=== PATIENT | male | born 1970 | race American Indian/Alaskan Native ===

== ENCOUNTER 2017-03-20 04:47 | Emergency (ER) | payer SELFPAY ==
[2017-03-20 05:29] VITALS: BP 150/96
[2017-03-20 06:14] LABS: Basophils % (Auto) 0.3 % (0.0-1.8); Eosinophils % (Auto) 1.1 % (0.0-4.3); Hematocrit 42.8 % (35.5-45.6); Mean Corpuscular HGB Conc 33 % (32-34); Mean Corpuscular Hemoglobin 30 pg (28-32); Mean Corpuscular Volume 91 fl (84-94); Platelet Count 245 K/mm3 (140-440); Red Blood Count 4.69 M/mm3 (3.65-5.03); Red Cell Distribution Width 13.2 % (13.2-15.2); White Blood Count 12.5 K/mm3 (4.5-11.0)
[2017-03-20 06:29] LABS: Alanine Aminotransferase 10 units/L (7-56); Albumin 3.8 g/dL (3.9-5); Albumin/Globulin Ratio 1.1 %; Alkaline Phosphatase 95 units/L (35-129); Anion Gap 17 mmol/L; Blood Urea Nitrogen 14 mg/dL (9-20); Calcium 8.8 mg/dL (8.4-10.2); Carbon Dioxide 24 mmol/L (22-30); Chloride 93.8 mmol/L (98-107); Glucose 343 mg/dL (75-100); Lipase 17 units/L (13-60); Potassium 4.2 mmol/L (3.6-5.0); Sodium 131 mmol/L (137-145); Total Protein 7.4 g/dL (6.3-8.2)
[2017-03-20 07:37] LABS: Bilirubin,Urine NEG (Negative); Blood,Urine NEG (Negative); Ketones,Urine NEG (Negative); Leukocyte Esterase,Urine NEG (Negative); Nitrite,Urine NEG (Negative); Protein,Urine <15 mg/dL mg/dL (Negative); Urobilinogen,Urine < 2.0 mg/dL (<2.0)
[2017-03-20 07:40] LABS: RBC,Urine < 1.0 /HPF (0.0-6.0)
[2017-03-20 07:41] LABS: Mucus,Urine Few /HPF
--- NOTE | 2017-03-21 19:32 | ED Elopement Review ---
ED Pt Elopement review - Results review Lab results: Laboratory Tests 03/20/17 03/20/17 03/20/17 05:50 05:50 07:11 WBC 12.5 H RBC 4.69 Hgb 14.0 Hct 42.8 MCV 91 MCH 30 MCHC 33 RDW 13.2 Plt Count 245 Lymph % (Auto) 15.9 [place] % (Auto) 8.0 H Eos % (Auto) 1.1 Baso % (Auto) 0.3 Lymph # 2.0 [place] # 1.0 H Eos # 0.1 Baso # 0.0 Seg Neutrophils % 74.7 H Seg Neutrophils # 9.4 H Sodium 131 L Potassium 4.2 Chloride 93.8 L Carbon Dioxide 24 Anion Gap 17 BUN 14 Creatinine 0.7 L Estimated GFR > 60 BUN/Creatinine Ratio 20.00 Glucose 343 H Calcium 8.8 Total Bilirubin 0.20 AST 10 ALT 10 Alkaline Phosphatase 95 Total Protein 7.4 Albumin 3.8 L Albumin/Globulin Ratio 1.1 Lipase 17 Urine Color Yellow Urine Turbidity Clear Urine pH 5.0 Ur Specific [place] 1.029 Urine Protein <15 mg/dl Urine Glucose (UA) >=500 Urine Ketones Neg Urine Blood Neg Urine Nitrite Neg Urine Bilirubin Neg Urine Urobilinogen < 2.0 Ur Leukocyte Esterase Neg Urine WBC (Auto) 2.0 Urine RBC (Auto) < 1.0 U Epithel Cells (Auto) 1.0 Urine Mucus Few - Call Back decision Pt Call Back Decision: No action required
== END 2017-03-20 08:30 | disposition left against medical advice (07) ==
LOC: ED 04:47
DX: R10.9 Unspecified abdominal pain (principal); Z53.21 Procedure and treatment not carried out due to patient leaving prior to being seen by health care provider
CPT/HCPCS: 36415; 80053; 81001; 83690; 85025

== ENCOUNTER 2017-08-20 13:24 | Emergency (ER) | payer OTHER ==
[2017-08-20] MEDS ORDERED: NACL 0.9% 1000 ML 1,000 ML IV ONE (13:29)
--- NOTE | 2017-08-20 13:31 | Emergency Department Report ---
ED General Adult HPI - General Chief complaint: Altered Mental Status Stated complaint: AMS Time Seen by Provider: 08/20/17 13:28 Source: EMS (verbal report received from EMS.ems notes not available at time of chart dictation), RN notes reviewed Limitations: Altered Mental Status, Physical Limitation - History of Present Illness Initial comments: This is a 47-year-old male, the patient is previously unknown to this provider. EMS reports a past medical history of PTSD. They report that the patient likely had recent abdominal surgery at the local [place] hospital; they believe that the patient had a colectomy/colostomy bag removal. EMS indicates that they were contacted for agitated behavior. They indicate that the patient was quite combative, and required many people to restrain and hold him down in the field. They verbally reported that they gave Benadryl, Versed, and Haldol prior to arrival. Upon arrival to the ER, the patient sedated, is arousable, protecting his airway, and in no acute distress. Family is unavailable at this time for collateral information. Unable to ascertain information about exacerbating or relieving factors, radiation, etc. -: unknown Radiation: other (as per history of present illness) Consistency: other (as per history of present illness) Improves with: other (as per history of present illness) Worsens with: other (as per history of present illness) Associated Symptoms: other (as per history of present illness) - Related Data Home Medications Medication Instructions Recorded Confirmed Last Taken Sertraline 200 mg PO DAILY 03/20/17 03/20/17 Unknown amLODIPine 10 mg PO DAILY 03/20/17 03/20/17 Unknown glipiZIDE 5 mg PO TID 03/20/17 03/20/17 Unknown metFORMIN 1,000 mg PO TID 03/20/17 03/20/17 Unknown Allergies Allergy/AdvReac Type Severity Reaction Status Date / Time No Known Allergies Allergy Unverified 03/20/17 05:29 ED Review of Systems ROS: Stated complaint: AMS Other details as noted in HPI Comment: Unobtainable due to pts medical conditions ED Past Medical Hx - Past Medical History Hx Hypertension: Yes Hx Diabetes: Yes Hx Arthritis: Yes Additional medical history: PTSD, - Surgical History Additional Surgical History: Right Ankle. Right hip. - Social History Smoking Status: Current Every Day Smoker Substance Use Type: None - Medications Home Medications: Home Medications Medication Instructions Recorded Confirmed Last Taken Type Sertraline 200 mg PO DAILY 03/20/17 03/20/17 Unknown History amLODIPine 10 mg PO DAILY 03/20/17 03/20/17 Unknown History glipiZIDE 5 mg PO TID 03/20/17 03/20/17 Unknown History metFORMIN 1,000 mg PO TID 03/20/17 03/20/17 Unknown History ED Physical Exam - General Limitations: Altered Mental Status, Physical Limitation General appearance: lethargic - Head Head exam: Present: atraumatic, normocephalic - Eye Eye exam: Present: normal appearance, PERRL - ENT ENT exam: Present: normal exam, normal orophraynx, mucous membranes moist, TM's normal bilaterally, normal external ear exam, other (there is no hemotympanum) - Neck Neck exam: Present: normal inspection. Absent: tenderness, meningismus - Respiratory Respiratory exam: Present: normal lung sounds bilaterally. Absent: respiratory distress, wheezes, rales, rhonchi, stridor, chest wall tenderness, accessory muscle use, decreased breath sounds, prolonged expiratory - Cardiovascular Cardiovascular Exam: Present: normal rhythm, tachycardia, normal heart sounds. Absent: systolic murmur, diastolic murmur, rubs, gallop - GI/Abdominal GI/Abdominal exam: Present: soft, normal bowel sounds, other (multiple ragini noted on the abdominal wall. No redness, pus or streaking. There is no tenderness). Absent: distended, tenderness, guarding, rebound, rigid, pulsatile mass - Rectal Rectal exam: Present: normal inspection - exam: Present: normal inspection External exam: Present: normal external exam - Extremities Exam Extremities exam: Present: normal inspection, normal capillary refill, other ( there is no clonus. The compartments are soft. There is no long bony step- offs. 2+ pulses noted in the bilateral upper and lower extremities). Absent: calf tenderness - Back Exam Back exam: Present: normal inspection. Absent: tenderness, CVA tenderness (R), paraspinal tenderness - Neurological Exam Neurological exam: Present: altered - Psychiatric Psychiatric exam: Present: other (patient is currently nonverbal) - Skin Skin exam: Present: warm, dry, intact, normal color. Absent: rash ED Course Vital Signs 08/20/17 08/20/17 13:36 14:08 Temperature 99.3 F Pulse Rate 103 H Respiratory 18 18 Rate Blood Pressure 142/86 O2 Sat by Pulse 99 100 Oximetry - Reevaluation(s) Reevaluation #1: 08/20/17 13:49 Differential diagnosis: Intracranial injury, cervical spine injury, mood disorder, electrolyte derangement, intra-abdominal injury Assessment and plan: 47-year-old male who is currently sedated after episode of agitated behavior. He does not have hyperreflexia, there is no clonus, and he does not have a fever. We will check CT scan of the brain and cervical spine, laboratory studies, urinalysis, chest x-ray, noncontrast CT scan of the abdomen and pelvis, and wait for the patient to wake up in order to obtain better history. Reevaluation #2: 08/20/17 15:12 Additional history obtained from patient's fiance, Miss Cheli Menon; She reports that the patient was quite agitated earlier on today, and is currently dependent on "rocks", crack and cocaine. Apparently, the patient endorses suicidality, and was quite agitated and belligerent, and this is why 911 was contacted. She reports that the patient had a distant history of diverticulitis, which required colostomy, which was reversed 2 weeks ago at [facility], by Dr. Zavala. Patient is placed on a 1013 at this time. A crisis consult has been ordered/ requested. Reevaluation #3: 08/20/17 15:[address] scan of the brain and cervical spine negative. CT scan of the abdomen/pelvis with nonspecific findings. Patient is still sleepy, plan to repeat with IV and oral contrast. If abnormal findings persist on repeat CT scan with better delineation, will discuss with the patient's surgeon at [facility], Dr. Zavala. [facility] Haile Zavala M.D. [facility] Appendectomy, Breast Surgery, Cancer Surgery, Colon Surgery, Gallbladder Surgery , Hernia Surgery, Laparoscopic Surgery, Melanoma Surgery, Parathyroid Surgery, Rectal Surgery, Reflux Surgery, Spleen Surgery, Stomach Surgery, Thyroid Surgery Board Certification June 2013 [facility] 05/2008-06/[address] [facility] Office(s) [facility] [address] [address] 08/20/17 15:28 Reevaluation #4: 08/20/17 15:43 Care transferred to the oncoming ER physician, Dr. Armando, to follow-up CT scan of the abdomen and pelvis with IV and oral contrast. Patient still somnolent and sedated, therefore he cannot tolerate oral contrast, we will have to wait for him to wake up. ED Medical Decision Making - Lab Data Result diagrams: 08/20/17 13:57 08/20/17 13:57 Vital Signs 08/20/17 13:36 Temperature 99.3 F Pulse Rate 103 H Respiratory 18 Rate Blood Pressure 142/86 O2 Sat by Pulse 99 Oximetry - EKG Data 08/20/17 13:51 Sinus tachycardia, 104 bpm, left axis deviation, atrial enlargement, not morphologically consistent with STEMI, QTc prolonged period there is no prior for comparison at this time. - Radiology Data Radiology results: pending Critical care attestation.: If time is entered above; I have spent that time in minutes in the direct care of this critically ill patient, excluding procedure time. ED Disposition Clinical Impression: Mood disorder Disposition: DC/TX-65 PSY HOSP/PSY UNIT Is pt being admited?: No Does the pt Need Aspirin: No Condition: Good Referrals: PRIMARY CARE, [Primary Care Provider] - 3-5 Days
[2017-08-20 14:08] LABS: Urine Drugs of Abuse Note Disclamer
[2017-08-20 14:15] LABS: Basophils % (Auto) 0.7 % (0.0-1.8); Eosinophils % (Auto) 3.9 % (0.0-4.3); Hematocrit 39.4 % (35.5-45.6); Mean Corpuscular HGB Conc 33 % (32-34); Mean Corpuscular Hemoglobin 29 pg (28-32); Mean Corpuscular Volume 89 fl (84-94); Platelet Count 351 K/mm3 (140-440); Red Blood Count 4.43 M/mm3 (3.65-5.03); White Blood Count 6.8 K/mm3 (4.5-11.0)
[2017-08-20 14:28] LABS: Partial Thromboplastin Time 22.9 Sec. (24.2-36.6)
[2017-08-20 14:34] LABS: Alanine Aminotransferase 6 units/L (7-56); Albumin 3.9 g/dL (3.9-5); Albumin/Globulin Ratio 1.1 %; Alkaline Phosphatase 73 units/L (35-129); Anion Gap 19 mmol/L; BUN/Creatinine Ratio 7; Blood Urea Nitrogen 6 mg/dL (9-20); Calcium 8.9 mg/dL (8.4-10.2); Carbon Dioxide 24 mmol/L (22-30); Chloride 101.8 mmol/L (98-107); Creatine Kinase 180 units/L (55-170); Glucose 166 mg/dL (75-100); Potassium 3.8 mmol/L (3.6-5.0); Sodium 141 mmol/L (137-145); Total Protein 7.3 g/dL (6.3-8.2)
--- NOTE | 2017-08-20 14:35 | XRay Report ---
AP CHEST: HISTORY: Altered mental status AP view of the chest demonstrates a normal mediastinal and cardiac contour with clear lungs and normal bony and soft tissue structures. IMPRESSION: Unremarkable AP chest.
[2017-08-20 14:36] LABS: Alanine Aminotransferase 7 units/L (7-56); Albumin 3.8 g/dL (3.9-5); Albumin/Globulin Ratio 1.1 %; Alkaline Phosphatase 73 units/L (35-129); Anion Gap 21 mmol/L; BUN/Creatinine Ratio 8; Blood Urea Nitrogen 6 mg/dL (9-20); Calcium 9.1 mg/dL (8.4-10.2); Carbon Dioxide 21 mmol/L (22-30); Chloride 102.3 mmol/L (98-107); Glucose 165 mg/dL (75-100); Potassium 3.8 mmol/L (3.6-5.0); Sodium 140 mmol/L (137-145); Total Protein 7.3 g/dL (6.3-8.2)
[2017-08-20 14:51] LABS: Bacteria,Urine 1+ /HPF (Negative); Bilirubin,Urine NEG (Negative); Blood,Urine NEG (Negative); Ketones,Urine NEG (Negative); Leukocyte Esterase,Urine TR (Negative); Mucus,Urine FEW /HPF; Nitrite,Urine NEG (Negative); Protein,Urine <15 mg/dL mg/dL (Negative); Urobilinogen,Urine < 2.0 mg/dL (<2.0)
--- NOTE | 2017-08-20 14:56 | Cat Scan Report ---
CRANIAL CT SCAN: History: Altered mental status. Serial contiguous axial images were obtained through the cranium. Intravenous contrast material was not administered. The ventricles are normal in size and appearance. There is no mass effect or midline shift. No areas of abnormally increased or decreased attenuation are seen. No mass lesion is seen. The mastoid air cells and visualized portions of the sinuses are normal. IMPRESSION: Cranial CT scan within normal limits.
--- NOTE | 2017-08-20 15:01 | Cat Scan Report ---
CT of cervical spine without contrast. History: Neck pain after trauma. Findings: There is no evidence of fracture or subluxation. Multilevel spondylosis is present with extensive anterior osteophytes from C4-C7. The posterior elements are normal. The odontoid is intact. Impression: No acute findings.
[2017-08-20] MEDS ORDERED: ATIVAN IM PRN (15:10)
[2017-08-20] MEDS ORDERED: MOTRIN PO PRN (15:11)
[2017-08-20] MEDS ORDERED: HALDOL IM PRN (15:11)
[2017-08-20] MEDS ORDERED: TYLENOL PO PRN (15:11)
[2017-08-20] MEDS ORDERED: ZOFRAN ODT PO PRN (15:11)
--- NOTE | 2017-08-20 15:16 | Cat Scan Report ---
CT of the abdomen and pelvis without contrast. History: Abdominal trauma. Findings: The technical quality of the examination especially regarding the upper abdominal viscera is suboptimal due to metallic streak artifact from an external metallic device in the patient's anterior skin surface. Noting these limitations, no definite abnormalities of the liver or spleen are seen. No subcapsular fluid collection is identified. The pancreas is unremarkable. There is a large left intrarenal stone centrally measuring 1.6 cm in maximum dimension. There is no evidence of hydronephrosis. There is a hypodense mass arising from the lateral aspect of the left kidney measuring 3.2 cm in diameter. This may represent a simple cyst but is difficult to assess accurately without intravenous contrast and due to the streak artifacts described above. There is no evidence of retroperitoneal hemorrhage. Surgical clips are seen in the patient's midline. No pelvic masses or abnormal fluid collections are seen. Thickening of Gerota's fascia is seen on the left. Coalescent density in the left paracolic gutter may represent fluid filled bowel. A Small fluid collection in this area cannot entirely be excluded. No free air is identified. No pelvic masses are seen. Impression: 1. Large left renal stone without hydronephrosis. 2. Hypodense left renal mass probably representing a cyst. Please see above described technical limitations. 3. Mild thickening of left Gerota's fascia with coalescent density in the left paracolic gutter. This are present fluid-filled bowel or a small fluid collection.
[2017-08-20] MEDS ORDERED: NACL ONE (18:04)
--- NOTE | 2017-08-20 20:05 | Cat Scan Report ---
FINAL REPORT PROCEDURE: CT ABDOMEN PELVIS W CON TECHNIQUE: Computerized axial tomography of the abdomen and pelvis was performed after the IV injection of iodinated nonionic contrast. HISTORY: iv and oral COMPARISON: 08/20/2017 FINDINGS: Liver, spleen, and adrenal glands are within normal limits. There are multiple simple cysts involving bilateral kidneys largest measuring 2.4 x 3.3 centimeters located in the midpole left kidney. 8 millimeter x 13 millimeter nonobstructive calculus is noted in the left lower collecting system. 2.2 x 2.8 centimeter septated cystic lesion involving the lower pole right kidney demonstrates a ill-defined areas of enhancement. In a similar fashion a 1.3 centimeters cystic lesion of the midpole right kidney demonstrates nodular enhancement along medial aspect. There is no hydronephrosis. Urinary bladder is well distended with normal outlines. There is no free air. Gallbladder is unremarkable. Aorta is of normal caliber. Small bowel loops are within normal limits. There is evidence of prior colonic surgery. Mild degree fluid is noted in the left paracolic gutter. Extensive degenerative changes are noted involving bilateral hip joints with deformities of femoral heads and acetabula. IMPRESSION: Partially enhancing cystic lesions are noted in the right kidney. Right renal neoplasms cannot be excluded. Biopsy is recommended. Nonobstructive left renal calculus. Mild degree left paracolic gutter fluid. Loculations of this fluid cannot be excluded.
--- NOTE | 2017-08-20 20:29 | Emergency Department Report ---
Blank Doc - Documentation Documentation: I was asked to follow up on this patient's repeat CT scan of the abdomen and pelvis, this time with by mouth and IV contrast, and hopes of medically clearing this patient. The CT report was read as left mild degree paracolic gutter fluid and that loculation cannot be ruled out. However the patient does not complain of any abdominal pain. There is no sign of any surrounding erythema or purulent discharge around the incision site where he has ragini. Vital signs are stable including being afebrile. There is no leukocytosis. I spoke to Dr. Mcintosh, the partner of Dr. Zavala who did the colostomy reversal on 08/06/17 at [facility]. Mcintosh says that it is not unusual for there to be some residual fluid in that paracolic gutter region as that is the area where it would accumulate, where it is a drainage site and secondary to the materials they used for the surgery. He says that in absence of symptoms and with the normal-appearing labs and vitals, that he is not concerned for any infection or postop complication. At this point, based on the rest of the evaluation done by Dr. Ventura, and as there is nothing else that I was asked to follow up on regarding medical clearance, the patient appears to be medically cleared for psychiatric placement. The 1013 was previously filled out by Dr Ventura.
[2017-08-21] MEDS: NORVASC PO SCH (16:08)
[2017-08-21] MEDS: ZOLOFT PO SCH (16:08)
[2017-08-21 20:11] VITALS: BP 143/88
[2017-08-21] MEDS ORDERED: NEURONTIN PO SCH (22:00)
[2017-08-21] MEDS ORDERED: REMERON PO SCH (22:00)
[2017-08-21] MEDS ORDERED: DESYREL PO SCH (22:00)
[2017-08-22] MEDS: NORVASC PO SCH (10:35)
[2017-08-22] MEDS: ZOLOFT PO SCH (10:35)
--- NOTE | 2017-08-22 13:39 | Consultation ---
History of Present Illness - Reason for Consult Consult date: 08/22/17 Reason for consult: Mental Health Evaluation Requesting physician: ABEL ARCOS - Chief Complaint Chief complaint: "I was upset" - History of Present Psychiatric Illness 47 y.o AA male presenting to [facility] for agitated behavior. Today patient is calm and cooperative during the assessment. He stated that he got upset with his girlfriend and became irritated, so he left the house and cannot remember anything else. He did state that he started drinking alcohol once he left his home. He stated that he been drinking alcohol over 20+ years. He stated that he drink (etoh) everyday. Per the patient, this is the first time in years that he have not had a drink in 2 straight days. He stated that he was "drunk" when he arrived at this facility. He stated experiencing "blacking out" from excessive drinking. He stated that he drink to mask his depression. He stated that he suffer from PTSD, because of trauma like experiences while in the . He stated that he struggle with feeling sad, hopeless, and helpless, but can't explain why. He denies SI/HI's and AVH's. He rate his depression 5/10, with 10 being the worse. He reports sleep disturbances prior to his admission, but denies a poor appetite. He denies recreational drug use, but positive for cocaine. Also, patient positive for benzos. He stated that his major issue is alcohol addiction. The patient is willing to attend rehab services once discharged. He stated not being compliant with his medication for 2 weeks prior to his admission to [facility]. Medications and Allergies Allergies Allergy/AdvReac Type Severity Reaction Status Date / Time No Known Allergies Allergy Unverified 03/20/17 05:29 Home Medications Medication Instructions Recorded Confirmed Last Taken Type Gabapentin [Neurontin] 400 mg PO QHS 08/20/17 08/20/17 Unknown History Metformin HCl [Metformin HCl ER] 1,000 mg PO BID 08/20/17 08/20/17 Unknown History Mirtazapine [Remeron] 30 mg PO QHS 08/20/17 08/20/17 Unknown History Morphine ER [Ms Contin ER] 30 mg PO Q12H 08/20/17 08/20/17 Unknown History Oxycodone HCl [oxyCODONE TAB] 10 mg PO Q4H PRN 08/20/17 08/20/17 Unknown History Sertraline [Zoloft] 200 mg PO QDAY 08/20/17 08/20/17 Unknown History amLODIPine [Norvasc] 10 mg PO QDAY 08/20/17 08/20/17 Unknown History glipiZIDE [Glucotrol] 5 mg PO QDAY 08/20/17 08/20/17 Unknown History traZODone [Desyrel] 200 mg PO QHS 08/20/17 08/20/17 Unknown History Active Meds: Active Medications Acetaminophen (Tylenol) 650 mg PO Q6HR PRN PRN Reason: Pain Amlodipine Besylate (Norvasc) 10 mg PO QDAY [facility] Last Admin: 08/22/17 10:35 Dose: 10 mg Gabapentin (Neurontin) 400 mg PO QHS [facility] Last Admin: 08/21/17 22:05 Dose: 400 mg Haloperidol Lactate (Haldol) 5 mg IM Q6HR PRN PRN Reason: Agitation Ibuprofen (Motrin) 600 mg PO Q6HR PRN PRN Reason: Pain Lorazepam (Ativan) 2 mg IM Q4HR PRN PRN Reason: Agitation Mirtazapine (Remeron) 30 mg PO QHS [facility] Last Admin: 08/21/17 22:05 Dose: 30 mg Ondansetron HCl (Zofran Odt) 4 mg PO Q6HR PRN PRN Reason: Nausea Sertraline HCl (Zoloft) 200 mg PO QDAY [facility] Last Admin: 08/22/17 10:35 Dose: 200 mg Trazodone HCl (Desyrel) 200 mg PO QHS [facility] Last Admin: 08/21/17 22:05 Dose: 200 mg Past psychiatric history - Past Medical History Past Medical History: hypertension Past Surgical History: Other (Abdomen Surgery) - past Psychiatric treatment and history Psych: Depression psychiatric treatment history: Patient stated that he will use the [place] services for outpatient psy services. He denies a fam psy hx. - Social History Social history: other (, HS Graduate) Mental Status Exam - Vital signs Last Vital Signs Temp 98.4 F 08/21/17 20:11 Pulse 87 08/22/17 10:35 Resp 18 08/22/17 12:45 BP 143/88 08/22/17 10:35 Pulse Ox 99 08/22/17 12:45 - Exam Narrative exam: MSE: Appearance: calm, cooperative Behavior: regular eye contact Speech: regular rate and tone Mood: "I am okay" Affect: congruent to mood Thought Process: linear Thought Content: denies SI/HI's and AVH's Motor Activity: ambulatory Cognition: A/O x 3 Insight: fair Judgment: fair Results Result Diagrams: 08/20/17 13:57 08/20/17 13:57 Abnormal lab results 08/21/17 Range/Units 11:02 POC Glucose 265 H (70-105) All other labs normal. Assessment and Plan Assessment and plan: Impression: Historical Dx: Depression/PTSD. Unspecified Mood DO. Alcohol Use DO. Substance Use DO (cocaine). Today patient is calm and cooperative during the assessment. Positive for cocaine. Patient is no threat to others. DDx: R/O MDD, R/O Bipolar, Alcohol Induced Mood DO Recommendation/Plan: Rescind 1013. Continue Zoloft 200 mg PO Daily for depression and Remeron 15 mg PO HS for sleep consolidation. Patient stated [facility]. Also, patient given outpatient/rehab services for [facility]. Discussed possible suicidality/medication induced marlen with patient reference antidepressants.
[2017-08-22] MEDS ORDERED: REMERON PO SCH (22:00)
== END 2017-08-22 17:33 | disposition home or self-care (01) ==
LOC: EEVIPCON 13:24 → ED 13:24
DX: F39 Unspecified mood [affective] disorder (principal); I10 Essential (primary) hypertension; E11.9 Type 2 diabetes mellitus without complications; M19.90 Unspecified osteoarthritis, unspecified site; F43.10 Post-traumatic stress disorder, unspecified; F17.200 Nicotine dependence, unspecified, uncomplicated
CPT/HCPCS: 36415; 70450; 71010; 72125; 74176; 74177; 80053; 80307; 81001; 82140; 82550; 82962; 83735; 84443; 84484; 85025; 85610; 85730; 93005; 93010; 96360; 99285; G0480; Q9967; 80320

== ENCOUNTER 2020-06-06 12:26 | Emergency (ER) | payer OTHER ==
--- NOTE | 2020-06-06 14:03 | XRay Report ---
CHEST 1 VIEW 06/06/2020 1:29 PM INDICATION / CLINICAL INFORMATION: Chest Pain. COMPARISON: One view of the chest from 08/20/2017. FINDINGS: SUPPORT DEVICES: None. HEART / MEDIASTINUM: No significant abnormality. LUNGS / PLEURA: No significant pulmonary or pleural abnormality. No pneumothorax. ADDITIONAL FINDINGS: No significant additional findings. IMPRESSION: 1. No acute abnormality of the chest. Signer Name: Shant Bustamante MD Signed: 06/06/2020 1:58 PM Workstation Name: [id number]
--- NOTE | 2020-06-06 15:00 | Emergency Department Report ---
ED Chest Pain HPI - General Chief Complaint: Dyspnea/Respdistress Stated Complaint: PUI/HYPERGLYCEMIA Time Seen by Provider: 06/06/20 13:02 Source: EMS Mode of arrival: Stretcher Limitations: No Limitations - History of Present Illness Initial Comments: This is a 50-year-old man who states that his sugars have been out of control. He tells me that he called the ambulance because of chest pain and shortness of breath. He stated the chest pain was of less than 1 minute duration. He states that he used to be on Lantus at night but he is now taking another medication of unknown name. He receives care at the [facility]. He does admit to having a p sychiatric disorder. Per review of his previous medical record in 2017: Assessment and Plan Assessment and plan: Impression: Historical Dx: Depression/PTSD. Unspecified Mood DO. Alcohol Use DO. Substance Use DO (cocaine). Today patient is calm and cooperative during the assessment. Positive for cocaine. Patient is no threat to others. Despite stating that he call EMS because of chest pain, there is no record of a prehospital 12-lead EKG or report from EMS. The patient states that he has been admitted to the [facility] within 6 months for evaluation of chest pain having studies done as an inpatient which were negative for a heart problem. He also states he has had several stress tests in the past that were negative. He has a very strange affect and approach. He immediately asked me where I am from a symptoms I come in the room. When I told him [place], he was reassured and continue to provide historical information. Medication reconciliation indicates previous prescription for MS Contin in 2017. Complaint: chest pain -: minutes(s) (Less than a minute) Severity scale (0 -10): 9 - Related Data Home Medications Medication Instructions Recorded Confirmed Last Taken Gabapentin 400 mg PO QHS 08/20/17 08/20/17 Unknown Metformin HCl [Metformin HCl ER] 1,000 mg PO BID 08/20/17 08/20/17 Unknown Mirtazapine [Remeron] 30 mg PO QHS 08/20/17 08/20/17 Unknown Morphine ER [Ms Contin ER] 30 mg PO Q12H 08/20/17 08/20/17 Unknown Oxycodone HCl [oxyCODONE] 10 mg PO Q4H PRN 08/20/17 08/20/17 Unknown Sertraline [Zoloft] 200 mg PO QDAY 08/20/17 08/20/17 Unknown amLODIPine 10 mg PO QDAY 08/20/17 08/20/17 Unknown glipiZIDE [Glucotrol] 5 mg PO QDAY 08/20/17 08/20/17 Unknown traZODone [Desyrel] 200 mg PO QHS 08/20/17 08/20/17 Unknown Previous Rx's Medication Instructions Recorded Last Taken Type Insulin Regular, Human [HumuLIN R] 1 units SQ BID #1 vial 06/06/20 Unknown Rx Allergies Allergy/AdvReac Type Severity Reaction Status Date / Time No Known Allergies Allergy Unverified 03/20/17 05:29 Heart Score - HEART Score History: Slightly suspicious EKG: Non-specific Age: 45-65 Risk factors: > 3 risk factors or hx of atherosclerotic disease Troponin: < normal limit HEART Score: 4 - Critical Actions Critical Actions: 4-6 pts:12-16.6% risk of adverse cardiac event. Should be admitted ED Review of Systems ROS: Stated complaint: PUI/HYPERGLYCEMIA Other details as noted in HPI Constitutional: denies: chills, fever Eyes: denies: eye pain, eye discharge, vision change ENT: denies: ear pain, throat pain Respiratory: denies: cough, shortness of breath, wheezing Cardiovascular: chest pain. denies: palpitations Endocrine: other (States uncontrolled hyperglycemia) Gastrointestinal: denies: abdominal pain, nausea, diarrhea Genitourinary: denies: urgency, dysuria Musculoskeletal: denies: back pain, joint swelling, arthralgia Skin: denies: rash, lesions Neurological: denies: headache, weakness, paresthesias Psychiatric: denies: anxiety, depression Hematological/Lymphatic: denies: easy bleeding, easy bruising ED Past Medical Hx - Past Medical History Hx Hypertension: Yes Hx Diabetes: Yes Hx Arthritis: Yes Additional medical history: PTSD, - Surgical History Additional Surgical History: Right Ankle. Right hip. - Social History Smoking Status: Current Every Day Smoker Substance Use Type: Alcohol - Medications Home Medications: Home Medications Medication Instructions Recorded Confirmed Last Taken Type Gabapentin 400 mg PO QHS 08/20/17 08/20/17 Unknown History Metformin HCl [Metformin HCl ER] 1,000 mg PO BID 08/20/17 08/20/17 Unknown History Mirtazapine [Remeron] 30 mg PO QHS 08/20/17 08/20/17 Unknown History Morphine ER [Ms Contin ER] 30 mg PO Q12H 08/20/17 08/20/17 Unknown History Oxycodone HCl [oxyCODONE] 10 mg PO Q4H PRN 08/20/17 08/20/17 Unknown History Sertraline [Zoloft] 200 mg PO QDAY 08/20/17 08/20/17 Unknown History amLODIPine 10 mg PO QDAY 08/20/17 08/20/17 Unknown History glipiZIDE [Glucotrol] 5 mg PO QDAY 08/20/17 08/20/17 Unknown History traZODone [Desyrel] 200 mg PO QHS 08/20/17 08/20/17 Unknown History Insulin Regular, Human [HumuLIN R] 1 units SQ BID #1 vial 06/06/20 Unknown Rx ED Physical Exam - General Limitations: No Limitations General appearance: alert, in no apparent distress - Head Head exam: Present: atraumatic, normocephalic - Eye Eye exam: Present: normal appearance. Absent: scleral icterus - ENT ENT exam: Present: mucous membranes moist - Neck Neck exam: Present: normal inspection - Respiratory Respiratory exam: Present: normal lung sounds bilaterally. Absent: respiratory distress - Cardiovascular Cardiovascular Exam: Present: regular rate, normal rhythm. Absent: systolic murmur, diastolic murmur, rubs, gallop - GI/Abdominal GI/Abdominal exam: Present: soft, normal bowel sounds. Absent: distended, tenderness, guarding, rebound, rigid - Rectal Rectal exam: Present: deferred - Extremities Exam Extremities exam: Present: normal inspection, normal capillary refill. Absent: calf tenderness - Back Exam Back exam: Present: normal inspection - Neurological Exam Neurological exam: Present: alert, oriented X3, CN II-XII intact. Absent: motor sensory deficit - Psychiatric Psychiatric exam: Present: normal affect, normal mood - Skin Skin exam: Present: warm, dry, intact, normal color. Absent: rash ED Course Vital Signs 06/06/20 06/06/20 06/06/20 12:54 13:00 13:15 Temperature 98.1 F 98.1 F Pulse Rate 13 L 86 Respiratory 14 22 24 Rate Blood Pressure 172/132 Blood Pressure 165/103 [Right] O2 Sat by Pulse 97 99 100 Oximetry - Reevaluation(s) Reevaluation #1: Patient apparently became very anxious. I gave him Ativan. On my reevaluation he stated he felt better. This clearly does have a psychiatric disorder/PTSD. He is not in DKA. He will be given a liter of fluid, IV insulin. He will be placed on a sliding scale. He is to follow-up with the [facility]. I will also refer him to [facility]. 06/06/20 15:46 LUISA score - Luisa Score Age > 65: (0) No Aspirin use within the Past 7 Days: (0) No 3 or more CAD Risk Factors: (1) Yes 2 or more Angina events in past 24 hrs: (0) No Known CAD with more than 50% Stenosis: (0) No Elevated Cardiac Markers: (0) No ST Deviation Greater than 0.5mm: (0) No LUISA Score: 1 ED Medical Decision Making - Lab Data Result diagrams: 06/06/20 14:40 06/06/20 14:40 Laboratory Results - last 24 hr 06/06/20 06/06/20 06/06/20 14:40 14:40 14:40 WBC 5.3 RBC 4.68 Hgb 15.0 Hct 45.2 MCV 97 H MCH 32 MCHC 33 RDW 13.2 Plt Count 152 Lymph % (Auto) 30.5 [place] % (Auto) 8.9 H Eos % (Auto) 2.0 Baso % (Auto) 0.5 Lymph # 1.6 [place] # 0.5 Eos # 0.1 Baso # 0.0 Seg Neutrophils % 58.1 Seg Neutrophils # 3.1 PT 12.3 INR 0.90 APTT 24.3 VBG pH Estimated GFR > 60 BUN/Creatinine Ratio 9 Troponin T < 0.010 Albumin/Globulin Ratio 06/06/20 06/06/20 14:40 14:40 WBC RBC Hgb Hct MCV MCH MCHC RDW Plt Count Lymph % (Auto) [place] % (Auto) Eos % (Auto) Baso % (Auto) Lymph # [place] # Eos # Baso # Seg Neutrophils % Seg Neutrophils # PT INR APTT VBG pH 7.415 Estimated GFR BUN/Creatinine Ratio Troponin T Albumin/Globulin Ratio 1.2 Laboratory Results - last 24 hr 06/06/20 06/06/2020 14:40 14:40 14:40 WBC 5.3 RBC 4.68 Hgb 15.0 Hct 45.2 MCV 97 H MCH 32 MCHC 33 RDW 13.2 Plt Count 152 Lymph % (Auto) 30.5 [place] % (Auto) 8.9 H Eos % (Auto) 2.0 Baso % (Auto) 0.5 Lymph # 1.6 [place] # 0.5 Eos # 0.1 Baso # 0.0 Seg Neutrophils % 58.1 Seg Neutrophils # 3.1 PT 12.3 INR 0.90 APTT 24.3 VBG pH Sodium 136 L Potassium 4.3 Chloride 97.8 L Carbon Dioxide 23 Anion Gap 20 BUN 8 L Creatinine 0.9 Estimated GFR > 60 BUN/Creatinine Ratio 9 Glucose 402 H Calcium 8.8 Troponin T < 0.010 Albumin/Globulin Ratio 06/06/20 06/06/20 14:40 14:40 WBC RBC Hgb Hct MCV MCH MCHC RDW Plt Count Lymph % (Auto) [place] % (Auto) Eos % (Auto) Baso % (Auto) Lymph # [place] # Eos # Baso # Seg Neutrophils % Seg Neutrophils # PT INR APTT VBG pH 7.415 Sodium Potassium Chloride Carbon Dioxide Anion Gap BUN Creatinine Estimated GFR BUN/Creatinine Ratio Glucose Calcium Troponin T Albumin/Globulin Ratio 1.2 - EKG Data -: EKG Interpreted by Ut EKG shows normal: sinus rhythm, axis, intervals, QRS complexes, ST-T waves Rate: normal - EKG Data Interpretation: no acute changes - Radiology Data Radiology results: report reviewed Critical care attestation.: If time is entered above; I have spent that time in minutes in the direct care of this critically ill patient, excluding procedure time. 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 Regular insulin with sliding scale. Close follow-up with your [facility] physicians. [facility] if you need further assistance. Return to the emergency department any acute change or problem. Prescriptions: Insulin Regular, Human [HumuLIN R] 1 units SQ BID #1 vial Referrals: MARGO LOPEZ MD [Primary Care Provider] - 24 Hours
[2020-06-06 15:08] LABS: Basophils % (Auto) 0.5 % (0.0-1.8); Eosinophils # (Auto) 0.1 K/mm3 (0.0-0.4); Hematocrit 45.2 % (35.5-45.6); Lymphocytes # (Auto) 1.6 K/mm3 (1.2-5.4); Lymphocytes % (Auto) 30.5 % (13.4-35.0); Mean Corpuscular HGB Conc 33 % (32-34); Mean Corpuscular Volume 97 fl (84-94); Monocytes # (Auto) 0.5 K/mm3 (0.0-0.8); Monocytes % (Auto) 8.9 % (0.0-7.3); Platelet Count 152 K/mm3 (140-440); Red Blood Count 4.68 M/mm3 (3.65-5.03); Red Cell Distribution Width 13.2 % (13.2-15.2)
[2020-06-06] MEDS ORDERED: LORazepam 2 MG/ML VIAL IM ONE (15:15)
[2020-06-06 15:20] LABS: INR 0.9 (0.87-1.13)
[2020-06-06 15:21] LABS: Partial Thromboplastin Time 24.3 Sec. (24.2-36.6)
[2020-06-06 15:28] LABS: Creatine Kinase MB 1.1 ng/mL (0.0-4.0)
[2020-06-06 15:29] LABS: Alanine Aminotransferase 13 units/L (7-56); Albumin 3.8 g/dL (3.9-5)
[2020-06-06 15:31] LABS: BUN/Creatinine Ratio 9; Blood Urea Nitrogen 8 mg/dL (9-20); Calcium 8.8 mg/dL (8.4-10.2); Hemolysis Index 2
[2020-06-06 15:42] LABS: Bilirubin,Direct < 0.2 mg/dL (0-0.2)
[2020-06-06] MEDS ORDERED: SODIUM CHLORIDE 0.9% 1000 ML 1,000 ML IV ONE (15:50)
[2020-06-06] MEDS ORDERED: INSULIN REGULAR, HUMAN 100 UNITS/1 ML IV ONE (15:51)
[2020-06-06 21:47] VITALS: BP 132/82
== END 2020-06-06 20:45 | disposition home or self-care (01) ==
LOC: ED 12:26
DX: E11.65 Type 2 diabetes mellitus with hyperglycemia (principal); R07.89 Other chest pain; F99 Mental disorder, not otherwise specified; I10 Essential (primary) hypertension; M19.90 Unspecified osteoarthritis, unspecified site; F43.10 Post-traumatic stress disorder, unspecified; F17.200 Nicotine dependence, unspecified, uncomplicated; Z79.899 Other long term (current) drug therapy
CPT/HCPCS: 36415; 71045; 80048; 80076; 82010; 82550; 82553; 82805; 82962; 83735; 83880; 84484; 85025; 85610; 85730; 93005; 96361; 96372; 96374; 99284; J2060; J7030; J1815